=== PATIENT | male | born 1965 | race African-American/Black ===

== ENCOUNTER 2016-06-13 08:53 | Inpatient (IN) | payer OTHER ==
[2016-06-13 09:20] VITALS: BMI 21.5
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
[2016-06-13] MEDS ORDERED: P-EPHED 60MG/TRIPROLIDI 2.5MG TABLET PO PRN (11:23)
[2016-06-13] MEDS ORDERED: hydrOXYzine PAMOATE 50 MG CAPSULE (FP) PO PRN (11:23)
[2016-06-13] MEDS ORDERED: chlordiazePOXIDE HCL 25 MG CAPSULE PO PRN (11:23)
[2016-06-13] MEDS ORDERED: guaiFENesin/D-METHORPHAN HB 10 ML UNIT-DOSE CUPS PO PRN (11:23)
[2016-06-13] MEDS ORDERED: chlordiazePOXIDE HCL 25 MG CAPSULE PO ONE (11:23)
[2016-06-13] MEDS ORDERED: MAGNESIUM CITRATE 300 ML BOTTLE PO PRN (11:23)
[2016-06-13] MEDS ORDERED: IBUPROFEN 400 MG TABLET (FP) PO PRN (11:23)
[2016-06-13] MEDS ORDERED: NICOTINE POLACRILEX 2 MG GUM BC PRN (11:23)
[2016-06-13] MEDS ORDERED: MAGNESIUM HYDROX 2400MG/30ML ORAL SUSPENSION 30 ML CUP PO PRN (11:23)
[2016-06-13] MEDS ORDERED: MENTHOL/PHENOL 1 EACH UD MM PRN (11:23)
[2016-06-13] MEDS ORDERED: ACETAMINOPHEN 325 MG TABLET (FP) PO PRN (11:23)
[2016-06-13] MEDS: NICOTINE 14 MG/24 HOURS TOPICAL PATCH TD SCH (12:38)
[2016-06-13] MEDS: chlordiazePOXIDE HCL 25 MG CAPSULE PO SCH ×2 (17:05→22:10)
[2016-06-13] MEDS: CYCLOBENZAPRINE HCL 10 MG TABLET (FP) PO PRN ×2 (17:06→22:10)
[2016-06-13 17:23] LABS: URINE APPEARANCE CLEAR; URINE BILIRUBIN NEGATIVE (NEGATIVE); URINE BLOOD NEGATIVE (NEGATIVE); URINE COLOR YELLOW; URINE GLUCOSE (UA) 1+ (NEGATIVE); URINE KETONE NEGATIVE (NEGATIVE); URINE LEUK ESTERASE NEGATIVE (NEGATIVE); URINE NITRITE NEGATIVE (NEGATIVE); URINE PROTEIN NEGATIVE (NEGATIVE); URINE UROBILINOGEN 4.0 E.U/dl E.U./dl (0.2-1.0)
[2016-06-13] MEDS: diphenhydrAMINE HCL 50 MG CAPSULE PO PRN (22:10)
[2016-06-13] MEDS: THIAMINE HCL 100 MG TABLET (FP) PO SCH (22:10)
--- NOTE | 2016-06-13 23:19 | EKG ---
Test Reason : Blood Pressure : / mmHG Vent. Rate : 078 BPM Atrial Rate : 078 BPM P-R Int : 142 ms QRS Dur : 092 ms QT Int : 468 ms P-R-T Axes : 042 065 039 degrees QTc Int : 533 ms SINUS RHYTHM WITH PREMATURE VENTRICULAR COMPLEXES MINIMAL VOLTAGE CRITERIA FOR LVH, MAY BE NORMAL VARIANT PROLONGED QT ABNORMAL ECG NO PREVIOUS ECGS AVAILABLE Confirmed by NORMA MCGARRY MD ([id number]) on 06/13/2016 11:19:17 PM Referred By: Confirmed By:NORMA MCGARRY MD
[2016-06-14] MEDS: chlordiazePOXIDE HCL 25 MG CAPSULE PO SCH ×4 (05:37→22:17)
[2016-06-14] MEDS: PRENATAL VITAMINS W/ FOLIC ACID TABLET (FP) PO SCH (10:12)
[2016-06-14 10:13] LABS: MCH 32.5 pg (25.7-33.7); MCHC 32.3 g/dl (32.0-35.9); MEAN CELL VOLUME 100.7 fl (80-96); PLATELET COUNT 104 K/MM3 (134-434); RDW 13.2 % (11.9-15.9)
[2016-06-14] MEDS: NICOTINE 14 MG/24 HOURS TOPICAL PATCH TD SCH (10:13)
[2016-06-14] MEDS: CYCLOBENZAPRINE HCL 10 MG TABLET (FP) PO PRN ×2 (10:15→22:18)
[2016-06-14] MEDS ORDERED: ONDANSETRON *ODT* 4 MG TABLET SL PRN (10:38)
--- NOTE | 2016-06-14 10:40 | PN ---
S CIWA - CIWA Score Nausea/Vomitin Muscle Tremors: 4-Moderate,w/Arms Extend Anxiety: 4-Mod. Anxious/Guarded Agitation: 4-Moderately Restless Paroxysmal Sweats: 3 Orientation: 0-Oriented Tacttile Disturbances: 1-Very Mild Itch/Numbness Auditory Disturbances: 0-None Visual Disturbances: 0-None Headache: 1-Very Mild CIWA-Ar Total Score: 20 BHS Progress Note (SOAP) Subjective: nausea, sweats, interrupted sleep, anxiety, tremor Objective: 06/14/16 10:38 Vital Signs - 8 hr 06/14/16 06/14/16 06/14/16 03:30 06:09 09:17 Temperature 96.8 F L 98.2 F Pulse Rate 90 83 Respiratory 18 16 18 Rate Blood Pressure 111/80 128/91 Laboratory Tests 06/13/16 06/14/16 16:00 06:30 WBC 2.0 L D RBC 3.84 L Hgb 12.5 Hct 38.6 MCV 100.7 H MCHC 32.3 RDW 13.2 Plt Count 104 L MPV 9.0 Urine Color Yellow Urine Appearance Clear Urine pH 6.0 Ur Specific [place] 1.024 Urine Protein Negative Urine Glucose (UA) 1+ H Urine Ketones Negative Urine Blood Negative Urine Nitrite Negative Urine Bilirubin Negative Urine Urobilinogen 4.0 e.u/dl Ur Leukocyte Esterase Negative Assessment: 06/14/16 10:38 withdrawal sx Plan: cont detox
[2016-06-14 10:42] LABS: ALBUMIN 3.1 g/dl (3.4-5.0); ANION GAP 7 (8-16); CALCIUM 8.8 mg/dL (8.5-10.1); CO2 31 mmol/L (21-32); CREATININE 0.7 mg/dL (0.7-1.3); GLUCOSE,RANDOM 107 mg/dL (74-106); SGOT/AST 252 U/L (15-37); SGPT/ALT 171 U/L (12-78)
[2016-06-14 10:43] LABS: ALK PHOS 164 U/L (45-117); TOT PROT 6.7 g/dl (6.4-8.2)
--- NOTE | 2016-06-14 11:02 | EKG ---
Test Reason : Blood Pressure : / mmHG Vent. Rate : 072 BPM Atrial Rate : 072 BPM P-R Int : 150 ms QRS Dur : 096 ms QT Int : 466 ms P-R-T Axes : 073 066 057 degrees QTc Int : 510 ms SINUS RHYTHM WITH PREMATURE VENTRICULAR COMPLEXES VOLTAGE CRITERIA FOR LEFT VENTRICULAR HYPERTROPHY PROLONGED QT ABNORMAL ECG WHEN COMPARED WITH ECG OF 13-JUN-2016 12:42, COMPARED TO EKG NO SIGNIFICANT CHANGE IS FOUND Confirmed by YULY CAI MD ([id number]) on 06/14/2016 11:02:00 AM Referred By: Confirmed By:YULY CAI MD
[2016-06-14 11:21] LABS: SICKLE CELL SCREEN NEGATIVE (NEGATIVE)
[2016-06-14] MEDS ORDERED: POTASSIUM CHLORIDE TABS 20 MEQ TABLET.ER (FP) PO ONE (17:00)
[2016-06-14] MEDS: THIAMINE HCL 100 MG TABLET (FP) PO SCH (22:17)
[2016-06-14] MEDS: POTASSIUM CHLORIDE TABS 20 MEQ TABLET.ER (FP) PO SCH (22:18)
[2016-06-14] MEDS: diphenhydrAMINE HCL 50 MG CAPSULE PO PRN (22:18)
[2016-06-15] MEDS: chlordiazePOXIDE HCL 25 MG CAPSULE PO SCH ×2 (05:29→10:18)
[2016-06-15] MEDS: CYCLOBENZAPRINE HCL 10 MG TABLET (FP) PO PRN ×2 (05:30→22:13)
[2016-06-15] MEDS: MAG HYDROX/AL HYDROX/SIMETH 30 ML UNIT-DOSE CUP PO PRN ×2 (05:30→21:22)
[2016-06-15] MEDS: PRENATAL VITAMINS W/ FOLIC ACID TABLET (FP) PO SCH (10:17)
[2016-06-15] MEDS: NICOTINE 14 MG/24 HOURS TOPICAL PATCH TD SCH (10:17)
[2016-06-15] MEDS: POTASSIUM CHLORIDE TABS 20 MEQ TABLET.ER (FP) PO SCH ×2 (10:18→17:24)
--- NOTE | 2016-06-15 11:19 | PN ---
S CIWA - CIWA Score Nausea/Vomitin Muscle Tremors: 4-Moderate,w/Arms Extend Anxiety: 4-Mod. Anxious/Guarded Agitation: 4-Moderately Restless Paroxysmal Sweats: 3 Orientation: 0-Oriented Tacttile Disturbances: 1-Very Mild Itch/Numbness Auditory Disturbances: 0-None Visual Disturbances: 0-None Headache: 0-None Present CIWA-Ar Total Score: 19 BHS Progress Note (SOAP) Subjective: nausea, sweats, interrupted sleep, anxeity, tremor Objective: 06/15/16 11:18 Vital Signs - 24 hr 06/14/16 06/14/16 06/14/16 13:52 17:18 22:33 Temperature 97.0 F L 97.5 F L 97.6 F Pulse Rate 93 H 78 94 H Respiratory 20 18 18 Rate Blood Pressure 122/84 109/69 126/80 06/15/16 06/15/16 06/15/16 00:17 03:39 06:31 Temperature 97.5 F L Pulse Rate 84 Respiratory 18 18 18 Rate Blood Pressure 116/79 06/15/16 09:34 Temperature 99.1 F Pulse Rate 102 H Respiratory 20 Rate Blood Pressure 113/83 Laboratory Tests 06/13/16 06/14/16 06/14/16 16:00 06:30 06:30 WBC 2.0 L D RBC 3.84 L Hgb 12.5 Hct 38.6 MCV 100.7 H MCHC 32.3 RDW 13.2 Plt Count 104 L MPV 9.0 Sickle Cell Screen Negative Sodium 138 Potassium 3.4 L Chloride 100 Carbon Dioxide 31 Anion Gap 7 L BUN 10 D Creatinine 0.7 Creat Clearance w eGFR > 60 Random Glucose 107 H D Calcium 8.8 Total Bilirubin 1.0 AST 252 H D ALT 171 H D Alkaline Phosphatase 164 H D Total Protein 6.7 Albumin 3.1 L Urine Color Yellow Urine Appearance Clear Urine pH 6.0 Ur Specific [place] 1.024 Urine Protein Negative Urine Glucose (UA) 1+ H Urine Ketones Negative Urine Blood Negative Urine Nitrite Negative Urine Bilirubin Negative Urine Urobilinogen 4.0 e.u/dl Ur Leukocyte Esterase Negative RPR Titer 06/14/16 06:30 WBC RBC Hgb Hct MCV MCHC RDW Plt Count MPV Sickle Cell Screen Sodium Potassium Chloride Carbon Dioxide Anion Gap BUN Creatinine Creat Clearance w eGFR Random Glucose Calcium Total Bilirubin AST ALT Alkaline Phosphatase Total Protein Albumin Urine Color Urine Appearance Urine pH Ur Specific [place] Urine Protein Urine Glucose (UA) Urine Ketones Urine Blood Urine Nitrite Urine Bilirubin Urine Urobilinogen Ur Leukocyte Esterase RPR Titer Nonreactive hypokalemia, macrocytosis, hypoalbuminemia, elevated LFTs Assessment: 06/15/16 11:19 withdrawal sx, abnormal labs secodnary to alcohol use Plan: cont detox, fluids, supplement k repeat labs
[2016-06-15] MEDS: chlordiazePOXIDE 5 MG CAPSULE PO SCH ×2 (17:23→22:12)
[2016-06-15] MEDS: THIAMINE HCL 100 MG TABLET (FP) PO SCH (22:12)
[2016-06-15] MEDS: diphenhydrAMINE HCL 50 MG CAPSULE PO PRN (22:13)
[2016-06-16] MEDS: chlordiazePOXIDE 5 MG CAPSULE PO SCH ×2 (05:57→10:10)
--- NOTE | 2016-06-16 09:44 | PN ---
BHS Progress Note (SOAP) Subjective: nausea, sweats, interrupted sleep, anxiety, tremor Objective: 06/16/16 09:43 Vital Signs - 8 hr 06/16/16 06/16/16 06/16/16 03:30 06:36 09:30 Temperature 96.5 F L 97.9 F Pulse Rate 51 L 71 Respiratory 18 16 18 Rate Blood Pressure 114/81 123/76 Laboratory Tests 06/13/16 06/14/16 06/14/16 16:00 06:30 06:30 WBC 2.0 L D RBC 3.84 L Hgb 12.5 Hct 38.6 MCV 100.7 H MCHC 32.3 RDW 13.2 Plt Count 104 L MPV 9.0 Sickle Cell Screen Negative Sodium 138 Potassium 3.4 L Chloride 100 Carbon Dioxide 31 Anion Gap 7 L BUN 10 D Creatinine 0.7 Creat Clearance w eGFR > 60 Random Glucose 107 H D Calcium 8.8 Total Bilirubin 1.0 AST 252 H D ALT 171 H D Alkaline Phosphatase 164 H D Total Protein 6.7 Albumin 3.1 L Urine Color Yellow Urine Appearance Clear Urine pH 6.0 Ur Specific [place] 1.024 Urine Protein Negative Urine Glucose (UA) 1+ H Urine Ketones Negative Urine Blood Negative Urine Nitrite Negative Urine Bilirubin Negative Urine Urobilinogen 4.0 e.u/dl Ur Leukocyte Esterase Negative RPR Titer 06/14/16 06:30 WBC RBC Hgb Hct MCV MCHC RDW Plt Count MPV Sickle Cell Screen Sodium Potassium Chloride Carbon Dioxide Anion Gap BUN Creatinine Creat Clearance w eGFR Random Glucose Calcium Total Bilirubin AST ALT Alkaline Phosphatase Total Protein Albumin Urine Color Urine Appearance Urine pH Ur Specific [place] Urine Protein Urine Glucose (UA) Urine Ketones Urine Blood Urine Nitrite Urine Bilirubin Urine Urobilinogen Ur Leukocyte Esterase RPR Titer Nonreactive hypokalemia Assessment: 06/16/16 09:44 withdrawal sx, low K Plan: cont detox, supplement k, recheck chem
[2016-06-16] MEDS: PRENATAL VITAMINS W/ FOLIC ACID TABLET (FP) PO SCH (10:10)
[2016-06-16] MEDS: NICOTINE 14 MG/24 HOURS TOPICAL PATCH TD SCH (10:10)
[2016-06-16] MEDS: POTASSIUM CHLORIDE TABS 20 MEQ TABLET.ER (FP) PO SCH ×2 (10:10→17:23)
[2016-06-16 11:15] LABS: ALBUMIN 3.2 g/dl (3.4-5.0); ALK PHOS 173 U/L (45-117); ANION GAP 6 (8-16); BILIRUBIN,TOTAL 0.6 mg/dL (0.2-1.0); CALCIUM 9.1 mg/dL (8.5-10.1); CO2 26 mmol/L (21-32); CREATININE 0.6 mg/dL (0.7-1.3); GLUCOSE,RANDOM 127 mg/dL (74-106); SGOT/AST 142 U/L (15-37); SGPT/ALT 146 U/L (12-78)
[2016-06-16] MEDS: MAG HYDROX/AL HYDROX/SIMETH 30 ML UNIT-DOSE CUP PO PRN (14:52)
[2016-06-16] MEDS: chlordiazePOXIDE HCL 10 MG CAPSULE PO SCH ×2 (17:23→23:53)
[2016-06-16] MEDS: LOPERAMIDE HCL 2 MG CAPSULE PO PRN (21:29)
[2016-06-16] MEDS: TRIMETHOBENZAMIDE HCL 200MG/2ML INJ IM PRN (23:39)
[2016-06-16] MEDS: THIAMINE HCL 100 MG TABLET (FP) PO SCH (23:53)
[2016-06-16] MEDS: CYCLOBENZAPRINE HCL 10 MG TABLET (FP) PO PRN (23:54)
[2016-06-17] MEDS: LOPERAMIDE HCL 2 MG CAPSULE PO PRN (05:26)
[2016-06-17] MEDS: chlordiazePOXIDE HCL 10 MG CAPSULE PO SCH ×2 (05:26→11:01)
[2016-06-17] MEDS: TRIMETHOBENZAMIDE HCL 200MG/2ML INJ IM PRN (07:26)
--- NOTE | 2016-06-17 08:36 | PN ---
BHS Progress Note (SOAP) Subjective: no complaints Objective: 06/17/16 08:34 Vital Signs - 8 hr 06/17/16 06/17/16 03:45 06:33 Temperature 97.0 F L Pulse Rate 88 Respiratory 18 18 Rate Blood Pressure 129/92 Laboratory Tests 06/13/16 06/14/16 06/14/16 16:00 06:30 06:30 WBC 2.0 L D RBC 3.84 L Hgb 12.5 Hct 38.6 MCV 100.7 H MCHC 32.3 RDW 13.2 Plt Count 104 L MPV 9.0 Sickle Cell Screen Negative Sodium 138 Potassium 3.4 L Chloride 100 Carbon Dioxide 31 Anion Gap 7 L BUN 10 D Creatinine 0.7 Creat Clearance w eGFR > 60 Random Glucose 107 H D Calcium 8.8 Total Bilirubin 1.0 AST 252 H D ALT 171 H D Alkaline Phosphatase 164 H D Total Protein 6.7 Albumin 3.1 L Urine Color Yellow Urine Appearance Clear Urine pH 6.0 Ur Specific [place] 1.024 Urine Protein Negative Urine Glucose (UA) 1+ H Urine Ketones Negative Urine Blood Negative Urine Nitrite Negative Urine Bilirubin Negative Urine Urobilinogen 4.0 e.u/dl Ur Leukocyte Esterase Negative RPR Titer 06/14/16 06/16/16 06:30 07:00 WBC RBC Hgb Hct MCV MCHC RDW Plt Count MPV Sickle Cell Screen Sodium 137 Potassium 4.2 D Chloride 105 Carbon Dioxide 26 Anion Gap 6 L BUN 9 Creatinine 0.6 L Creat Clearance w eGFR > 60 Random Glucose 127 H Calcium 9.1 Total Bilirubin 0.6 D AST 142 H D ALT 146 H Alkaline Phosphatase 173 H Total Protein 7.0 Albumin 3.2 L Urine Color Urine Appearance Urine pH Ur Specific [place] Urine Protein Urine Glucose (UA) Urine Ketones Urine Blood Urine Nitrite Urine Bilirubin Urine Urobilinogen Ur Leukocyte Esterase RPR Titer Nonreactive elevated lfts Assessment: 06/17/16 08:35 completed detox, medically stable hepatitis c with elevated lfts Plan: d/c today to rehab
--- NOTE | 2016-06-17 08:41 | DS ---
[facility]charge Summary Admission Date: 06/13/16 Discharge Date: 06/17/16 - History Present History: Alcohol Dependence Pertinent Past History: nicotine dependence, anxiety, depression and insomnia, recent wt loss - Physical Exam Results Vital Signs: Vital Signs Temperature 97.0 F L 06/17/16 06:33 Pulse Rate 88 06/17/16 06:33 Respiratory Rate 18 06/17/16 06:33 Blood Pressure 129/92 06/17/16 06:33 O2 Sat by Pulse Oximetry (%) Pertinent Admission Physical Exam Findings: withdrawal sx - Treatment Hospital Course: Detox Protocol Followed, Detoxed Safely, Responded well, Discharged Condition Good, Rehab Referral Accepted Patient has Accepted a Rehab Referral to: Yes - Medication Discharge Medications: Ambulatory Orders Calcium 500 mg PO BID 06/23/14 Folic Acid 1 mg PO DAILY 06/13/16 Thiamine HCl [Vitamin B1 -] 100 mg PO DAILY 06/13/16 - Diagnosis (1) Alcohol dependence with withdrawal, uncomplicated Current Visit: Yes Status: Acute (2) Hepatitis C Current Visit: Yes Status: Chronic Qualifiers: Viral hepatitis chronicity: chronic Hepatic coma status: without hepatic coma Qualified Code(s): B18.2 - Chronic viral hepatitis C (3) Nicotine dependence Current Visit: Yes Status: Chronic Qualifiers: Nicotine product type: cigarettes Substance use status: uncomplicated Qualified Code(s): F17.210 - Nicotine dependence, cigarettes, uncomplicated (4) Malnutrition Current Visit: Yes Status: Acute - AMA Did Patient Leave Against Medical Advice: No
[2016-06-17] MEDS: NICOTINE 14 MG/24 HOURS TOPICAL PATCH TD SCH (10:15)
[2016-06-17] MEDS: PRENATAL VITAMINS W/ FOLIC ACID TABLET (FP) PO SCH (10:15)
[2016-06-17] MEDS: POTASSIUM CHLORIDE TABS 20 MEQ TABLET.ER (FP) PO SCH ×2 (10:15→16:59)
[2016-06-17] MEDS ORDERED: ONDANSETRON *ODT* 4 MG TABLET SL ONE (10:52)
[2016-06-17] MEDS ORDERED: NAPROXEN 500 MG TABLET (FP) PO SCH (11:00)
[2016-06-17] MEDS ORDERED: AMOXICILLIN 250 MG CAPSULE PO SCH (11:15)
[2016-06-17 13:35] VITALS: BP 120/73; PULSE 110; TEMP 96.2
== END 2016-06-17 17:14 | disposition home or self-care (01) | DRG 775 ==
LOC: YASAS 08:53 → Y3N 10:05
PROVIDERS: ADMIT Internal Medicine; ATTEND Internal Medicine
PROC: HZ2ZZZZ Detoxification Services for Substance Abuse Treatment (ICD-10-PCS; principal; 2016-06-13)
DX: F10.230 Alcohol dependence with withdrawal, uncomplicated (principal); F17.210 Nicotine dependence, cigarettes, uncomplicated; B18.2 Chronic viral hepatitis C; E46 Unspecified protein-calorie malnutrition; Z68.21 Body mass index [BMI] 21.0-21.9, adult; R94.5 Abnormal results of liver function studies; E87.6 Hypokalemia; D75.89 Other specified diseases of blood and blood-forming organs; E88.09 Other disorders of plasma-protein metabolism, not elsewhere classified; J02.0 Streptococcal pharyngitis
CPT/HCPCS: 36415; 80053; 81003; 85027; 85660; 86593; 93005; 93010

== ENCOUNTER 2023-02-23 21:02 | Inpatient (IN) | payer OTHER ==
[2023-02-23 21:35] VITALS: BMI 24.3
[2023-02-23] MEDS ORDERED: MAGNESIUM HYDROX 2400MG/30ML ORAL SUSPENSION 30 ML CUP PO PRN (23:00)
[2023-02-23] MEDS ORDERED: BISMUTH SUBSALICYLATE 524 MG/30 ML PO PRN (23:00)
[2023-02-23] MEDS ORDERED: BENZONATATE 200 MG CAPSULE PO PRN (23:00)
[2023-02-23] MEDS ORDERED: guaiFENesin 600 MG TABLET.ER (FP) PO PRN (23:00)
[2023-02-23] MEDS ORDERED: POLYETHYLENE GLYCOL (HEALTHYLAX) 3350 17 GM PACKET PO PRN (23:00)
[2023-02-23] MEDS ORDERED: BENZOCAINE/MENTHOL (CHLORASEPTIC ) LOZENGE MM PRN (23:00)
[2023-02-23] MEDS ORDERED: hydrOXYzine PAMOATE 25 MG CAPSULE (FP) PO PRN (23:00)
[2023-02-23] MEDS ORDERED: ACETAMINOPHEN 325 MG TABLET (FP) PO PRN (23:00)
[2023-02-23] MEDS ORDERED: P-EPHED 60MG/TRIPROLIDI 2.5MG TABLET PO PRN (23:00)
[2023-02-23] MEDS ORDERED: NICOTINE POLACRILEX 2 MG GUM BUC PRN (23:00)
[2023-02-23] MEDS ORDERED: ONDANSETRON *ODT* 4 MG TABLET SL PRN (23:00)
[2023-02-23] MEDS ORDERED: DICYCLOMINE HCL 10 MG CAPSULE PO PRN (23:00)
[2023-02-23] MEDS ORDERED: LOPERAMIDE HCL 2 MG CAPSULE PO PRN (23:00)
[2023-02-23] MEDS ORDERED: IBUPROFEN 400 MG TABLET (FP) PO PRN (23:00)
[2023-02-23] MEDS ORDERED: IBUPROFEN 600 MG TABLET (FP) PO PRN (23:00)
[2023-02-24] MEDS ORDERED: chlordiazePOXIDE HCL 25 MG CAPSULE PO PRN (10:09)
[2023-02-24] MEDS: PRENATAL VITAMINS W/ FOLIC ACID TABLET (FP) PO SCH (10:11)
[2023-02-24 10:40] LABS: HEMATOCRIT 36.3 % (35.4-49); HEMOGLOBIN 11.9 GM/dL (11.7-16.9); MCH 33.4 pg (25.7-33.7); MCHC 32.6 g/dl (32.0-35.9); MEAN CELL VOLUME 102.2 fl (80-96); MEAN PLT VOLUME 8.5 fl (7.5-11.1); PLATELET COUNT 81 10^3/uL (134-434); RBC 3.55 M/mm3 (4.00-5.60); RDW 13.1 % (11.9-15.9)
[2023-02-24] MEDS: chlordiazePOXIDE HCL 25 MG CAPSULE PO SCH ×3 (10:43→22:27)
[2023-02-24 11:02] LABS: POTASSIUM 3.5 mmol/L (3.5-5.1)
[2023-02-24 11:11] LABS: ALBUMIN 3.1 g/dl (3.4-5.0); BLOOD UREA NITROGEN 12.7 mg/dL (7-18)
[2023-02-24 11:14] LABS: CREATININE 0.6 mg/dL (0.55-1.3)
[2023-02-24 11:16] LABS: BILIRUBIN,TOTAL 1.5 mg/dL (0.2-1); TOT PROT 6.3 g/dl (6.4-8.2)
[2023-02-24] MEDS ORDERED: MELATONIN 5 MG TABLETS PO SCH (22:00)
[2023-02-24] MEDS: THIAMINE HCL 100 MG TABLET (FP) PO SCH (22:27)
[2023-02-24] MEDS: QUEtiapine FUMARATE 50 MG TABLET PO SCH (22:27)
[2023-02-24] MEDS: traZODone HCL 50 MG TABLET (FP) PO SCH (22:27)
[2023-02-25] MEDS: chlordiazePOXIDE HCL 25 MG CAPSULE PO SCH ×4 (05:24→22:12)
[2023-02-25] MEDS: PRENATAL VITAMINS W/ FOLIC ACID TABLET (FP) PO SCH (10:16)
[2023-02-25] MEDS: THIAMINE HCL 100 MG TABLET (FP) PO SCH (22:13)
[2023-02-25] MEDS: traZODone HCL 50 MG TABLET (FP) PO SCH (22:13)
[2023-02-25] MEDS: QUEtiapine FUMARATE 50 MG TABLET PO SCH (22:13)
[2023-02-25] MEDS: MAG HYDROX/AL HYDROX/SIMETH 30 ML UNIT-DOSE CUP PO PRN (22:13)
[2023-02-26] MEDS: chlordiazePOXIDE HCL 25 MG CAPSULE PO SCH ×4 (05:30→22:10)
[2023-02-26] MEDS: MAG HYDROX/AL HYDROX/SIMETH 30 ML UNIT-DOSE CUP PO PRN (05:32)
[2023-02-26] MEDS: PRENATAL VITAMINS W/ FOLIC ACID TABLET (FP) PO SCH (10:08)
[2023-02-26] MEDS ORDERED: BISACODYL 5 MG TABLET.DR (FP) PO ONE (11:15)
[2023-02-26] MEDS: PANTOPRAZOLE 40 MG TABLET PO SCH (11:57)
[2023-02-26] MEDS: traZODone HCL 50 MG TABLET (FP) PO SCH (22:08)
[2023-02-26] MEDS: THIAMINE HCL 100 MG TABLET (FP) PO SCH (22:09)
[2023-02-26] MEDS: METHOCARBAMOL 500 MG TABLET PO PRN (22:09)
[2023-02-26] MEDS: QUEtiapine FUMARATE 50 MG TABLET PO SCH (22:10)
[2023-02-27] MEDS ORDERED: chlordiazePOXIDE HCL 10 MG CAPSULE PO PRN
[2023-02-27] MEDS: chlordiazePOXIDE HCL 10 MG CAPSULE PO SCH ×4 (05:44→22:09)
[2023-02-27] MEDS: PANTOPRAZOLE 40 MG TABLET PO SCH (09:41)
[2023-02-27] MEDS: PRENATAL VITAMINS W/ FOLIC ACID TABLET (FP) PO SCH (09:41)
[2023-02-27] MEDS ORDERED: BISACODYL 5 MG TABLET.DR (FP) PO ONE (17:00)
[2023-02-27] MEDS: QUEtiapine FUMARATE 50 MG TABLET PO SCH (22:07)
[2023-02-27] MEDS: THIAMINE HCL 100 MG TABLET (FP) PO SCH (22:07)
[2023-02-27] MEDS: METHOCARBAMOL 500 MG TABLET PO PRN (22:07)
[2023-02-27] MEDS: traZODone HCL 50 MG TABLET (FP) PO SCH (22:08)
[2023-02-28] MEDS: chlordiazePOXIDE HCL 10 MG CAPSULE PO SCH ×2 (05:26→17:16)
[2023-02-28] MEDS: PANTOPRAZOLE 40 MG TABLET PO SCH (09:33)
[2023-02-28] MEDS: PRENATAL VITAMINS W/ FOLIC ACID TABLET (FP) PO SCH (09:33)
[2023-02-28] MEDS: THIAMINE HCL 100 MG TABLET (FP) PO SCH (21:46)
[2023-02-28] MEDS: traZODone HCL 50 MG TABLET (FP) PO SCH (21:46)
[2023-02-28] MEDS: QUEtiapine FUMARATE 50 MG TABLET PO SCH (21:47)
[2023-03-01] MEDS ORDERED: chlordiazePOXIDE HCL 10 MG CAPSULE PO ONE (05:00)
[2023-03-01 09:14] VITALS: BP 125/81; PULSE 90; RESP 17; TEMP 98.4
[2023-03-01] MEDS: PANTOPRAZOLE 40 MG TABLET PO SCH (10:13)
[2023-03-01] MEDS: PRENATAL VITAMINS W/ FOLIC ACID TABLET (FP) PO SCH (10:13)
== END 2023-03-01 14:06 | disposition home or self-care (01) | DRG 774 ==
LOC: YASAS 21:02 → Y3N 23:25
PROVIDERS: ADMIT Allergy & Immunology; ATTEND Surgery
PROC: HZ2ZZZZ Detoxification Services for Substance Abuse Treatment (ICD-10-PCS; principal; 2023-02-23)
DX: F10.230 Alcohol dependence with withdrawal, uncomplicated (principal); F14.20 Cocaine dependence, uncomplicated; F17.220 Nicotine dependence, chewing tobacco, uncomplicated; F32.A Depression, unspecified; I10 Essential (primary) hypertension; Z86.79 Personal history of other diseases of the circulatory system; Z28.310 Unvaccinated for COVID-19; Z28.9 Immunization not carried out for unspecified reason
CPT/HCPCS: 36415; 80053; 85027; 86780; 87635; Q0162